=== PATIENT | female | born 1995 | race Caucasian/White ===

== ENCOUNTER 2016-06-25 12:36 | Emergency (ER) | payer OTHER ==
[2016-06-25 13:54] VITALS: RESP 18; TEMP 97.9
--- NOTE | 2016-06-25 14:35 | C.PDOC ---
History Of Present Illness 21 yo female come in for evaluation of Right breast pain with swelling for past 6 days. Pt denies known trauma or injury, CP, SOB, dyspnea, skin changes over breast, nipple changes, denies previous or FHx of breast ca. Pt is not breast feeding at present time. Last MP 04/29/16. Pt admits, " took antibiotic without any improvement in painful mass". Ambulate to ED for evaluation, not in any apparent distress. Time Seen by Provider: 06/25/16 14:10 Chief Complaint (Nursing): Breast Problem History Per: Patient Onset/Duration Of Symptoms: Gradual Past Medical History Reviewed: Historical Data, Nursing Documentation, Vital Signs Vital Signs: Last Vital Signs Temp 97.9 F 06/25/16 13:52 Pulse 84 06/25/16 13:52 Resp 18 06/25/16 13:52 BP 141/84 06/25/16 13:52 Pulse Ox 100 06/25/16 13:52 - Medical History PMH: No Chronic Diseases Surgical History: No Surg Hx Family History: States: No Known Family Hx - Social History Hx Alcohol Use: No Hx Substance Use: No - Immunization History Hx Tetanus Toxoid Vaccination: Yes Hx Influenza Vaccination: No Hx Pneumococcal Vaccination: No Review Of Systems Except As Marked, All Systems Reviewed And Found Negative. Constitutional: Negative for: Fever, Chills ENT: Negative for: Throat Pain Cardiovascular: Negative for: Chest Pain Respiratory: Positive for: Other (Breast lump). Negative for: Cough, Shortness of Breath Gastrointestinal: Negative for: Nausea, Vomiting, Abdominal Pain Genitourinary: Negative for: Dysuria, Frequency, Incontinence, Vaginal Bleeding Musculoskeletal: Negative for: Neck Pain, Back Pain Skin: Negative for: Rash, Lesions Neurological: Negative for: Weakness, Numbness, Altered Mental Status, Headache , Dizziness Physical Exam - Physical Exam Appears: Well, Non-toxic, No Acute Distress Skin: Normal Color, Warm, No Rash Head: Atraumatic, Normacephalic Eye(s): bilateral: Normal Inspection Nose: Normal, No Discharge Oral Mucosa: Moist Throat: Normal, No Erythema, No Exudate, No Drooling Neck: Normal, Normal ROM, Supple Lymphatic: No Axilla Node Tenderness Chest: Symmetrical, No Deformity, No Tenderness, Other (Right breast: tender mobile mass at 10 o'clock. No skin changes, no erythema, no flactulance. NO nipple changes or discharges.) Cardiovascular: Rhythm Regular Respiratory: Normal Breath Sounds, No Stridor, No Wheezing Gastrointestinal/Abdominal: Normal Exam, Soft, No Tenderness, No Distention, No Guarding Back: Normal Inspection Extremity: Normal ROM, No Deformity Neurological/Psych: Oriented x3, Normal Speech ED Course And Treatment O2 Sat by Pulse Oximetry: 100 Pulse Ox Interpretation: Normal Progress Note: On re-evaluation, pt is afebrile, hemodynamicaly stable. Non- toxic. ENT: no acute findings. Lungs: CTA B/L, BS equal B/L. Right beast: exam c/w tender mass. NO evidence of cellulitis or flactulance. POC (-). Pt advised and ref. to f/u with [facility] in 1-2 dyas for mammogram and further evaluation/tx. return if any new changes. Disposition Counseled Patient/Family Regarding: Diagnosis, Need For Followup, Rx Given - [facility]position [facility] Disposition: HOME/ ROUTINE Disposition Time: 14:36 Condition: STABLE Additional Instructions: Warm compresses to breast area Take Ibuprofen as need for pain Follow up with [facility] in 2-3 days for re-evaluation. Return to ED if any worsening or new changes. Prescriptions: Ibuprofen [Motrin] 400 mg PO Q6 #20 tab Instructions: Breast Self Exam for Women (ED) Print Language: SWEDISH - Clinical Impression Clinical Impression: Breast lump
[2016-06-25 15:09] VITALS: BP 129/75; PULSE 78; O2SAT 98
== END 2016-06-25 15:10 | disposition home or self-care (01) ==
LOC: C.ER 12:36
DX: N63 Unspecified lump in breast (principal)

== ENCOUNTER 2017-05-04 20:00 | Emergency (ER) | payer SELFPAY ==
[2017-05-04 20:32] VITALS: RESP 20; O2SAT 98
[2017-05-04 21:42] LABS: HCG,QUALITATIVE URINE POSITIVE (NEGATIVE)
[2017-05-04 21:51] LABS: SQUAMOUS EPITHIAL 5 /hpf (0-5); URINE BACTERIA RARE (<OCC); URINE BILIRUBIN NEGATIVE (NEGATIVE); URINE BLOOD NEGATIVE (NEGATIVE); URINE CLARITY Hazy (Clear); URINE COLOR Yellow (YELLOW); URINE GLUCOSE (UA) 3+ mg/dL (Normal); URINE LEUKOCYTE ESTERASE NEG Leu/uL (Negative); URINE NITRATE NEGATIVE (NEGATIVE); URINE PROTEIN NEGATIVE (NEGATIVE); URINE UROBILINOGEN NORMAL mg/dL (0.2-1.0)
[2017-05-04 22:22] LABS: BASO % 0.7 % (0.0-2.0); EOS # 0.1 K/uL (0.0-0.7); EOS % 0.8 % (0.0-4.0); HEMOGLOBIN 12.3 g/dL (11.0-16.0); LYMPH # 1.4 K/uL (1.0-4.3); MEAN CELL VOLUME 88.2 fL (81.0-99.0); MEAN CORPUSCULAR HEMOGLOBIN 29.7 pg (27.0-31.0); MEAN CORPUSCULAR HGB CONC 33.7 g/dL (33.0-37.0); MEAN PLATELET VOLUME 13.1 fL (7.2-11.7); MONO # 0.7 K/uL (0.0-0.8); MONO % 9.7 % (0.0-10.0); NEUT # 4.9 K/uL (1.8-7.0); NEUT % 68.8 % (50.0-75.0); RBC 4.14 Mil/uL (3.80-5.20); RED CELL DISTRIBUTION WIDTH 15.2 % (11.5-14.5); WHITE BLOOD COUNT 7.1 K/uL (4.8-10.8)
[2017-05-04 22:33] LABS: ALB/GLOB RATIO 1.1 (1.0-2.1); ALBUMIN 4.2 g/dL (3.5-5.0); ALT/SGPT 16 U/L (9-52); AST/SGOT 19 U/L (14-36); BLOOD UREA NITROGEN 5 mg/dL (7-17); CALCIUM 8.7 mg/dl (8.6-10.4); GFR AFRICAN-AMERICAN > 60; GFR NON-AFRICAN AMERICAN > 60
--- NOTE | 2017-05-04 22:43 | C.PDOC ---
History Of Present Illness 22 year old female presents to the ED c/o lower abdominal pain and dysuria for the past 2 days. Patient's LMP was on 03/13/17. Patient denies fever, chills, nausea, vomit, diarrhea, back pain, vaginal bleeding, vaginal discharge. Time Seen by Provider: 05/04/17 20:34 Chief Complaint (Nursing): Female Genitourinary History Per: Patient History/Exam Limitations: no limitations Onset/Duration Of Symptoms: Days Current Symptoms Are (Timing): Gone Location Of Pain/Discomfort: Diffuse Radiation Of Pain To:: None Quality Of Discomfort: "Pain" Associated Symptoms: Urinary Symptoms Exacerbating Factors: None Alleviating Factors: None Additional History Per: Patient Abnormal Vaginal Bleeding: No Last Menstral Period: 03/13/2017 Past Medical History Reviewed: Historical Data, Nursing Documentation, Vital Signs Vital Signs: Last Vital Signs Temp 98 F 05/05/17 00:55 Pulse 82 05/05/17 00:55 Resp 20 05/05/17 00:55 BP 128/74 05/05/17 00:55 Pulse Ox 98 05/05/17 00:55 - Medical History PMH: No Chronic Diseases Surgical History: No Surg Hx Family History: States: Unknown Family Hx - Social History Hx Alcohol Use: No Hx Substance Use: No - Immunization History Hx Tetanus Toxoid Vaccination: Yes Hx Influenza Vaccination: No Hx Pneumococcal Vaccination: No Review Of Systems Constitutional: Negative for: Fever, Chills Cardiovascular: Negative for: Chest Pain Respiratory: Negative for: Shortness of Breath Gastrointestinal: Positive for: Abdominal Pain. Negative for: Nausea, Vomiting Genitourinary: Positive for: Dysuria. Negative for: Vaginal Discharge, Vaginal Bleeding Musculoskeletal: Negative for: Back Pain Skin: Negative for: Rash Physical Exam - Physical Exam Appears: Non-toxic, No Acute Distress Skin: Normal Color, Warm, Dry Head: Atraumatic, Normacephalic Nose: No Discharge, No Deformity Oral Mucosa: Moist Neck: Normal ROM, Supple Chest: Symmetrical Cardiovascular: Rhythm Regular, No Murmur Respiratory: Normal Breath Sounds, No Rales, No Rhonchi, No Wheezing Gastrointestinal/Abdominal: Soft, Tenderness (suprapubic B/L), No Guarding, No Rebound Extremity: Normal ROM, No Deformity, No Swelling Neurological/Psych: Oriented x3, Normal Speech, Normal Cognition Gait: Steady ED Course And Treatment - Laboratory Results Result Diagrams: 05/04/17 22:19 05/04/17 22:19 O2 Sat by Pulse Oximetry: 98 (On RA) Pulse Ox Interpretation: Normal - CT Scan/US Pelvis US Other Rad Studies (CT/US): Interpreted By Me, Read By Radiologist CT/US Interpretation: live single IUP - see radiologist full report Progress Note: Plan: -Labs. -US. -UA. Accu chek done was 102 after Glucose + 3 was found on her urine. Labs and US d/w pt, abd now soft , NT and pt advised OB follow up for care Reassessment Condition: Improved Disposition Counseled Patient/Family Regarding: Diagnosis, Need For Followup, Rx Given - Disposition Referrals: [facility] [Outside] Disposition: HOME/ ROUTINE Disposition Time: 00:48 Condition: STABLE Additional Instructions: Follow up in clinic for care Return to ER if worse Prescriptions: Vit Calc,Iron,Folic [ Vitamins] 1 each PO DAILY #30 tablet Instructions: (ED) Forms: Handprint (Kyrgyz) Print Language: FRENCH - Clinical Impression Clinical Impression: Intrauterine - PA / RADIO REPORTER / Resident Statement MD/DO has reviewed & agrees with the documentation as recorded. - Scribe Statement The provider has reviewed the documentation as recorded by the Scribe Juanjose Mccabe All medical record entries made by the Scribe were at my direction and personally dictated by me. I have reviewed the chart and agree that the record accurately reflects my personal performance of the history, physical exam, medical decision making, and the department course for this patient. I have also personally directed, reviewed, and agree with the discharge instructions and disposition.
--- NOTE | 2017-05-05 00:22 | US ---
EXAM: US First Trimester, Transabdominal CLINICAL HISTORY: 22 years old, female; Pain; complicated by abdominal or pelvic pain; Lower; First trimester; Gestational age or lmp: 12-20-17; ; Additional info: Abd pain, TECHNIQUE: Real-time transabdominal obstetrical ultrasound of the maternal pelvis and a first trimester with image documentation. COMPARISON: No relevant prior studies available. FINDINGS: Gestation: Single live intrauterine gestation. heart rate of 165 beats per minute. [place]-rump length of 1.7 cm, correlating with gestational age of 8 weeks 1 day. Uterus/cervix: 1.5 x 1.0 x 1.5 cm collection along gestational sac. No cervical dilatation or effacement. Ovaries: Normal ovaries. No adnexal masses. Free fluid: No significant free fluid. IMPRESSION: 1. Single live intrauterine gestation. 2. Subchorionic hemorrhage.
[2017-05-05 00:57] VITALS: BP 128/74; PULSE 82; TEMP 98
== END 2017-05-05 00:55 | disposition home or self-care (01) ==
LOC: C.ER 20:00
DX: O26.891 Other specified pregnancy related conditions, first trimester (principal); Z3A.08 8 weeks gestation of pregnancy